=== PATIENT | male | born 1975 ===

== ENCOUNTER 2022-08-26 08:53 | Emergency (ER) | payer SELFPAY ==
[2022-08-26] MEDS ORDERED: FLUORESCEIN 1 MG STRIP OP ONE (11:07)
[2022-08-26] MEDS ORDERED: TETRACAINE 0.5% OPHTH SOLN 4ML OU ONE (11:08)
--- NOTE | 2022-08-26 11:59 | Emergency Department Report ---
ED Eye Problem HPI - General Chief complaint: Eye Problems Stated complaint: EYE PAIN Time Seen by Provider: 08/26/22 10:54 Source: patient Mode of arrival: Ambulatory Limitations: No Limitations - History of Present Illness Initial comments: 47 yo male with no pmh presents to ed for evaluation of 3 day history of right eye redness and drainage. 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 He states that he has woke up the past 3 days with right eye crusted shut. He s tates that he has had some pain to right eye but denies any vision changes. MD chief complaint: eye pain, eye redness -: days(s) (3) Location: right eye Place: home Eye Symptoms: burning, redness, pain, foreign body sensation, discharge Severity scale (0 -10): 2 If Pain, Quality: aching Consistency: constant Associated Symptoms: denies: headache, neck pain - Related Data Previous Rx's Medication Instructions Recorded Last Taken Type Ciprofloxacin HCl [Ciloxan] 2 ml OD Q4H 5 Days #1 bottle 08/26/22 Unknown Rx Erythromycin [Erythromycin Ophth 10 applic OD Q6H 5 Days #1 tube 08/26/22 Unknown Rx Oint] Allergies Allergy/AdvReac Type Severity Reaction Status Date / Time No Known Allergies Allergy Verified 08/26/22 09:07 ED Review of Systems ROS: Stated complaint: EYE PAIN Other details as noted in HPI Comment: All other systems reviewed and negative Constitutional: denies: chills, fever Eyes: eye pain, eye discharge. denies: vision change ENT: denies: congestion Respiratory: denies: cough, shortness of breath Cardiovascular: denies: chest pain, palpitations Gastrointestinal: denies: abdominal pain, nausea, vomiting Neurological: denies: headache, weakness ED Past Medical Hx - Past Medical History Hx Hypertension: Yes Hx Diabetes: Yes (prediabetic) Additional medical history: high cholesterol - Medications Home Medications: Home Medications Medication Instructions Recorded Confirmed Last Taken Type Ciprofloxacin HCl [Ciloxan] 2 ml OD Q4H 5 Days #1 bottle 08/26/22 Unknown Rx Erythromycin [Erythromycin Ophth 10 applic OD Q6H 5 Days #1 tube 08/26/22 Unknown Rx Oint] ED Physical Exam - General Limitations: No Limitations General appearance: alert, in no apparent distress - Head Head exam: Present: atraumatic, normocephalic - Expanded Eye Exam Expanded Pupils: Regular, Round: Bilateral Sclera/Conjunctival: Injection: Right - ENT ENT exam: Present: normal exam - Neck Neck exam: Present: normal inspection - Respiratory Respiratory exam: Absent: respiratory distress - Cardiovascular Cardiovascular Exam: Present: regular rate - GI/Abdominal GI/Abdominal exam: Absent: distended, tenderness - Extremities Exam Extremities exam: Present: normal inspection - Back Exam Back exam: Present: normal inspection - Neurological Exam Neurological exam: Present: alert, oriented X3 - Psychiatric Psychiatric exam: Present: normal affect, normal mood - Skin Skin exam: Present: warm, dry, intact, normal color ED Course Vital Signs 08/26/22 08/26/22 09:04 12:37 Temperature 98.7 F 98.2 F Pulse Rate 66 67 Respiratory 14 14 Rate Blood Pressure 139/85 122/87 [Left] O2 Sat by Pulse 99 99 Oximetry - Eye Procedure Alcaine Drops Administered: Yes Eye Irrigated w/ Saline (ccs): 20 Progress: positive fluorescein uptake to right corneal. ED Medical Decision Making - Medical Decision Making 47 yo male with no pmh presents to ed for evaluation of 3 day history of right eye redness and drainage. 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 He states that he has woke up the past 3 days with right eye crusted shut. He states that he has had some pain to right eye but denies any vision changes. Physical exam consistent with corneal abrasion, and patient was d/bernardino home with erythromycin ointment and ciloxan drops to use as directed and advised to follow up with ophthalmology if no improvement or worsening symptoms. He verbalized understanding of and agreement with plan of care. Critical care attestation.: If time is entered above; I have spent that time in minutes in the direct care of this critically ill patient, excluding procedure time. ED Disposition Clinical Impression: Corneal abrasion Qualifiers: Encounter type: initial encounter Laterality: right Qualified Code(s): S05.01XA - Injury of conjunctiva and corneal abrasion without foreign body, right eye, initial encounter Disposition: HOME / SELF CARE / HOMELESS Is pt being admited?: No Does the pt Need Aspirin: No Condition: Stable Instructions: Corneal Abrasion, [id number] Additional Instructions: Take medications as prescribed. Follow-up with ophthalmology (eye doctor) if no improvement or worsening symptoms. Return to the emergency department as needed. Prescriptions: Ciprofloxacin HCl [Ciloxan] 2 ml OD Q4H 5 Days #1 bottle Erythromycin [Erythromycin Ophth Oint] 10 applic OD Q6H 5 Days #1 tube Referrals: ESTEFANÍA HIDALGO MD [Staff Physician] - 3-5 Days Forms: Work/School Release Form(ED) Time of Disposition: 11:59
[2022-08-26 12:38] VITALS: BP 122/87
== END 2022-08-26 12:38 | disposition home or self-care (01) ==
LOC: ED 08:53
DX: S05.01XA Injury of conjunctiva and corneal abrasion without foreign body, right eye, initial encounter (principal); E78.00 Pure hypercholesterolemia, unspecified; I10 Essential (primary) hypertension; E11.9 Type 2 diabetes mellitus without complications; Z79.899 Other long term (current) drug therapy; X58.XXXA Exposure to other specified factors, initial encounter; Y93.89 Activity, other specified; Y92.89 Other specified places as the place of occurrence of the external cause; Y99.8 Other external cause status
CPT/HCPCS: 99283